=== PATIENT | female | born 1950 | race Caucasian/White ===

== ENCOUNTER 2024-05-03 08:48 | Outpatient (AMB) | payer MEDICARE, MEDICAID, SELFPAY ==
[2024-05-03 09:02] VITALS: BP 130/82; PULSE 70; RESP 18; TEMP 36.1; O2SAT 93; BMI 35.8
--- NOTE | 2024-05-03 09:02 | ORTHONT_ITS ---
Vital signs 05/03/24 09:02 Height 1.52 m Height Method Stated Weight 82.809 kg Weight Measurement Method Standing Scale BMI 35.8 BP 130/82 Blood Pressure Source Automatic Cuff Blood Pressure Location Right Upper Arm Position Sitting Respiration 18 Pulse 70 Pulse Source Monitor Temp 96.9 F Temp Source Temporal Artery Scan Pulse Oximetry (%) 93 L Oxygen Delivery Method Room Air Med/Allergies Allergies & Medications Allergies No Known Drug Allergies Allergy (Verified 05/03/24 09:03) Medication Reconciliation albuterol sulfate 90 mcg/actuation aerosol inhaler 2 puff inhalation Q6H PRN 03/30/24 [History Confirmed 05/03/24] aspirin 81 mg tablet,delayed release (Adult Low Dose Aspirin) 81 mg PO QDAY 03/30/24 [History Confirmed 05/03/24] atorvastatin 10 mg tablet 10 mg PO QDAY 03/30/24 [History Confirmed 05/03/24] famotidine 40 mg tablet 40 mg PO QDAY 03/30/24 [History Confirmed 05/03/24] fluticasone fur. 200 mcg-umeclid 62.5 mcg-vilant 25 mcg inhalat.powder (Trelegy Ellipta) 1 inh inhalation QDAY 03/30/24 [History Confirmed 05/03/24] furosemide 20 mg tablet 20 mg PO QDAY 03/30/24 [History Confirmed 05/03/24] gabapentin 300 mg capsule 300 mg PO QDAY 03/30/24 [History Confirmed 05/03/24] ipratropium 20 mcg-albuterol 100 mcg/actuation mist for inhalation (Combivent Respimat) 1 puff inhalation Q6H 03/30/24 [History Confirmed 05/03/24] levothyroxine 100 mcg capsule 100 mcg PO QDAY 03/30/24 [History Confirmed 05/03/24] metoprolol succinate 50 mg tablet,extended release 24 hr 50 mg PO QDAY 03/30/24 [History Confirmed 05/03/24] montelukast 10 mg tablet 10 mg PO QDAY 03/30/24 [History Confirmed 05/03/24] nitroglycerin 0.4 mg sublingual tablet 0.4 mg sublingual Q5M PRN 03/30/24 [History Confirmed 05/03/24] omeprazole 40 mg capsule,delayed release 40 mg PO QDAY 03/30/24 [History Confirmed 05/03/24] oxybutynin chloride 5 mg tablet 5 mg PO QDAY 03/30/24 [History Confirmed 05/03/24] Subjective Visit Visit for: follow up visit and x-rays (RESULTS) Immunization / Flu Flu Vaccine in the Last 12 Months: Yes Flu Vaccine Exclusion Criteria: Already Received History of Present Illness Chief complaint: XRAY RESULTS Echo is a pleasant 73-year-old female with left greater than right knee pain. This has been ongoing for several years. She has had cortisone injections in the past and that helped tremendously. The pain is primarily on the medial aspect of her knee Personal History Occupation: [employer] Hobbies: NONE Red flag PMH: smoker Pain Pain level (0-10): 2 Pain duration: COMES AND GOES Pain location: inside (medial) Pain quality: aching Pain timing: night and increases with activity Associated signs & symptoms: none Ambulatory data Ambulatory device: none Treatments Number of previous injections: 2 Improvement with previous injections: No Improvement with PT: No Improvement with NSAIDS: no Review of Systems Review of Systems: All systems negative unless otherwise noted in HPI. Exam Exam Patient is in no acute distress and is cooperative with the examination today. Breathing is nonlabored. Patient has a normal mood and affect. Bilateral extremities were evaluated and demonstrates sensation intact to light touch. Palpable pedal pulses are present. No significant edema is present. Bilateral hips were examined. The patient has no pain with log roll of the hips. Internal rotation to 30 degrees and external rotation to 30 degrees is painless. Negative FADIR. Right knee was examined today. The right knee is in reasonable alignment. Range of motion from 0-120 degrees. Knee is stable to varus and valgus as well as AP translation with <5mm. Patient has a negative McMurrays. There is no pain with patellofemoral compression and no crepitus noted. The knee is nontender to palpation. Left knee was examined today. The left knee is in [varus] alignment. Range of motion from [0-115] degrees. Knee is stable to varus and valgus as well as AP translation with <5mm. Patient has a [negative] McMurrays. There is [no] pain with patellofemoral compression and [no] crepitus noted. The knee is [tender] to palpation [medially]. Nonweightbearing x-rays from [place] [facility] reviewed by me today. There is advanced arthritis of both knees with complete joint space narrowing Assessment and Plan Problem List (1) Arthritis of right knee: Status: Acute Plan: Patient is a 73-year-old female with severe osteoarthritis of both knees. We discussed nonoperative operative options. She had a knee injection at the last visit. She reports she has done well from this. She wants to hold off on surgery for now. We did talk about total knee replacement today (2) Arthritis of left knee: Status: Acute Advanced Care Planning Discussion Advance care planning discussed with:: patient Office Procedures GNS Level of Care Nursing/Assessment Patient Status: Established Patient Nursing Assessment/Reassesment: Medication Reconciliation, Update PMH in EMR and Vital Signs Coordination of Care: Complex Care and Chronic Disease 1-5, Education Complex Pt/Fam, Consent,records obtained, informed consent, 1 Ins Authorization, Results/Orders obtained and Staff clarify orders Established Patient Charge Established Patient Point Assignment: 110 Established Patient Point Charge: EP Level 3 (80-115) Past Medical History Past Medical History Have you ever been diagnosed with any of the following: Respiratory Problems Smoking: No Smoking Exposure: No Tobacco Use: No
== END 2024-05-03 09:21 | disposition home or self-care (01) ==
PROVIDERS: PCP Family Medicine; Referring Provider Family Medicine; Supervising Provider Orthopaedic Surgery Adult Reconstructive Orthopaedic Surgery; Visit Provider Orthopaedic Surgery Adult Reconstructive Orthopaedic Surgery
DX: M17.0 Bilateral primary osteoarthritis of knee (principal)
CPT/HCPCS: 99213; G0463

== ENCOUNTER 2024-07-06 09:50 | Outpatient (AMB) | payer MEDICARE, MEDICAID, SELFPAY ==
[2024-07-06 10:02] VITALS: BP 129/77; PULSE 70; RESP 18; TEMP 36.4; O2SAT 95; BMI 36.2
--- NOTE | 2024-07-06 10:02 | PD.ORTHCLVIS ---
Vital signs 07/06/24 10:02 Height 1.52 m Height Method Stated Weight 83.659 kg Weight Measurement Method Standing Scale BMI 36.2 BP 129/77 Blood Pressure Source Automatic Cuff Blood Pressure Location Left Upper Arm Position Sitting Respiration 18 Pulse 70 Pulse Source Monitor Temp 97.5 F Temp Source Temporal Artery Scan Pulse Oximetry (%) 95 Oxygen Delivery Method Room Air Med/Allergies Allergies & Medications Allergies No Known Drug Allergies Allergy (Verified 07/06/24 10:03) Medication Reconciliation albuterol sulfate 90 mcg/actuation aerosol inhaler 2 puff inhalation Q6H PRN 03/30/24 [History Confirmed 07/06/24] aspirin 81 mg tablet,delayed release (Adult Low Dose Aspirin) 81 mg PO QDAY 03/30/24 [History Confirmed 07/06/24] atorvastatin 10 mg tablet 10 mg PO QDAY 03/30/24 [History Confirmed 07/06/24] famotidine 40 mg tablet 40 mg PO QDAY 03/30/24 [History Confirmed 07/06/24] fluticasone fur. 200 mcg-umeclid 62.5 mcg-vilant 25 mcg inhalat.powder (Trelegy Ellipta) 1 inh inhalation QDAY 03/30/24 [History Confirmed 07/06/24] furosemide 20 mg tablet 20 mg PO QDAY 03/30/24 [History Confirmed 07/06/24] gabapentin 300 mg capsule 300 mg PO QDAY 03/30/24 [History Confirmed 07/06/24] ipratropium 20 mcg-albuterol 100 mcg/actuation mist for inhalation (Combivent Respimat) 1 puff inhalation Q6H 03/30/24 [History Confirmed 07/06/24] levothyroxine 100 mcg capsule 100 mcg PO QDAY 03/30/24 [History Confirmed 07/06/24] metoprolol succinate 50 mg tablet,extended release 24 hr 50 mg PO QDAY 03/30/24 [History Confirmed 07/06/24] montelukast 10 mg tablet 10 mg PO QDAY 03/30/24 [History Confirmed 07/06/24] nitroglycerin 0.4 mg sublingual tablet 0.4 mg sublingual Q5M PRN 03/30/24 [History Confirmed 07/06/24] omeprazole 40 mg capsule,delayed release 40 mg PO QDAY 03/30/24 [History Confirmed 07/06/24] oxybutynin chloride 5 mg tablet 5 mg PO QDAY 03/30/24 [History Confirmed 07/06/24] Exam Exam Patient is in no acute distress and is cooperative with the examination today. Breathing is nonlabored. Patient has a normal mood and affect. Bilateral extremities were evaluated and demonstrates sensation intact to light touch. Palpable pedal pulses are present. No significant edema is present. Bilateral hips were examined. The patient has no pain with log roll of the hips. Internal rotation to 30 degrees and external rotation to 30 degrees is painless. Negative FADIR. Right knee was examined today. The right knee is in reasonable alignment. Range of motion from 0-120 degrees. Knee is stable to varus and valgus as well as AP translation with <5mm. Patient has a negative McMurrays. There is no pain with patellofemoral compression and no crepitus noted. The knee is nontender to palpation. Left knee was examined today. The left knee is in [varus] alignment. Range of motion from [0-115] degrees. Knee is stable to varus and valgus as well as AP translation with <5mm. Patient has a [negative] McMurrays. There is [no] pain with patellofemoral compression and [no] crepitus noted. The knee is [tender] to palpation [medially]. Nonweightbearing x-rays from [facility] reviewed by me today. There is advanced arthritis of both knees with complete joint space narrowing Assessment and Plan Problem List (1) Arthritis of right knee: Status: Acute Plan: Patient is a 73-year-old female with severe osteoarthritis of both knees. We discussed nonoperative operative options. She had a knee injection at the last visit. She reports she has done well from this. She wants to hold off on surgery for now. WShe almost has no pain today and we will thus continue with conservative treatment (2) Arthritis of left knee: Status: Acute Advanced Care Planning Discussion Advance care planning discussed with:: patient Office Procedures GNS Level of Care Nursing/Assessment Patient Status: Established Patient Nursing Assessment/Reassesment: Medication Reconciliation, Update PMH in EMR and Vital Signs Coordination of Care: Complex Care and Chronic Disease 1-5, Education Complex Pt/Fam, Consent,records obtained, informed consent, Results/Orders obtained and Staff clarify orders Established Patient Charge Established Patient Point Assignment: 95 Established Patient Point Charge: EP Level 3 (80-115) MA Intake Visit Data Collection New Patient or Established: Established Patient (seen at [facility] within 3 years) Reason for Visit:: 2 MTH F/U Seen by Clinical Staff ONLY (RN/MA): No Lpn Care Manager Required: No PCP or OBGYN visit in last 3 months: Yes Hx Now: No Do You Feel Safe at Home: Yes Authorities Contacted: N/A Questionairres Past Medical History Past Medical History Have you ever been diagnosed with any of the following: Respiratory Problems Smoking: No Smoking Exposure: No Tobacco Use: No Subjective Visit Visit for: follow up visit Immunization / Flu Flu Vaccine in the Last 12 Months: No Flu Vaccine Exclusion Criteria: No Exclusion Criteria History of Present Illness Chief complaint: Left knee pain Echo is a pleasant 71-year-old female with severe left knee arthritis. We injected her 3 months ago. If she has she has no pain at all on the left knee. She is happy with her progress Pain Pain level (0-10): 0 Associated signs & symptoms: none Ambulatory data Ambulatory device: none Treatments Improvement with previous injections: No Improvement with PT: No Improvement with NSAIDS: no Review of Systems Review of Systems: All systems negative unless otherwise noted in HPI.
== END 2024-07-06 10:45 | disposition home or self-care (01) ==
LOC: HODSRG 09:50
PROVIDERS: PCP Family Medicine; Referring Provider Family Medicine; Supervising Provider Orthopaedic Surgery Adult Reconstructive Orthopaedic Surgery; Visit Provider Orthopaedic Surgery Adult Reconstructive Orthopaedic Surgery
DX: M17.0 Bilateral primary osteoarthritis of knee (principal)
CPT/HCPCS: 99213; G0463

== ENCOUNTER → 2025-03-13 | Outpatient (CLI) | payer MEDICARE, MEDICAID, SELFPAY | END | disposition home or self-care (01) | PROVIDERS: PCP Family Medicine; Referring Provider Psychiatry & Neurology Neurology; Visit Provider Psychiatry & Neurology Neurology | DX: R94.01 Abnormal electroencephalogram [EEG] (principal) | CPT/HCPCS: 95816 ==

== ENCOUNTER → 2025-03-28 | Outpatient (CLI) | payer MEDICARE, MEDICAID, SELFPAY ==
--- NOTE | 2025-03-28 13:30 | XR_ITS ---
Examination: MRI brain without intravenous contrast. Date and time of exam: March 28, 2025, 1509 hours INDICATIONS: Increasing memory loss over the last 2 years Technique: Multiple axial and sagittal images of the brain obtained. Siemens high-resolution 1.5 Stacia short bore scanners utilized. Sagittal sections, T1-weighted, TR 500, TE 14, are performed. Axial sections proton-density and T2-weighted have been obtained. Inversion recovery axial images, TR 9, 260, TE 111, TI 2500. Diffusion weighted images, axial sections, TR 4800, TE 128, B value 1000 Axial sections, ADC map, TR 4800, TE 128 Findings: Enlargement of the sella turcica is not present. The optic chiasm and infundibular are not remarkable. Prepontine and interpeduncular cisterns are not enlarged. There is no localized enlargement of the medulla or major. Fourth ventricle and cerebellar tonsils appear normal in position. No subacute area of hemorrhage density is seen. Mass in the cerebellopontine angle region is not evident. Globes symmetrical. Orbital musculature including medial lateral rectus muscles do not exhibit abnormality. Diffusion-weighted images demonstrate no focus of restricted diffusion. Increased white matter signal significant Mass effect upon the ventricular system is not identified. Impression: Negative for acute hemorrhage or mass effect or midline shift No acute infarct Significant chronic microvascular white matter change
== END | disposition home or self-care (01) ==
PROVIDERS: PCP Family Medicine; Referring Provider Psychiatry & Neurology Neurology; Visit Provider Psychiatry & Neurology Neurology
DX: R90.82 White matter disease, unspecified (principal)
CPT/HCPCS: 70551